=== PATIENT | female | born 1945 | race Caucasian/White ===

== ENCOUNTER → 2022-07-27 10:23 | Outpatient (CLI) | payer MEDICARE, SELFPAY ==
--- NOTE | ~2022-07-27 | XR_ITS ---
XR knee LT 3V 07/27/2022 11:28 Indication: Left knee pain Procedure: 3 views left knee Comparison: No prior studies for comparison. Findings: Severe tricompartment osteoarthritis of the left knee. No significant joint effusion. No fr acture, subluxation or dislocation. No significant joint effusion. No foreign bodies. Impression: 1: Severe tricompartment osteoarthritis of the left knee. Reviewed, dictated and finalized at location L. Impression: 1: Severe tricompartment osteoarthritis of the left knee.
== END ==
PROVIDERS: PCP Internal Medicine; Visit Provider Nurse Practitioner Family
DX: M17.12 Unilateral primary osteoarthritis, left knee (principal)
CPT/HCPCS: 73562

== ENCOUNTER 2024-09-22 11:56 | Outpatient (CLI) | payer MEDICARE, SELFPAY ==
--- NOTE | ~2024-09-22 | MM_ITS ---
EXAMINATION: MM screening ryan BI w russ HISTORY: Screening TECHNIQUE: Craniocaudal and mediolateral oblique 3-D tomosynthesis images were obtained and synthetic 2-D images were generated. CAD analysis was submitted and interpreted. COMPARISON: No prior mammogram is available for comparison at this institution. BREAST PARENCHYMAL COMPOSITION: Not dense: There are scattered areas of fibroglandular density. FINDINGS: No significant change to benign-appearing mass in the left periareolar location. There is n o evidence of suspicious mass, calcification, or architectural distortion to suggest malignancy in ei ther breast. There has been no suspicious interval change. IMPRESSION: 1. No mammographic evidence of malignancy. 2. Recommend routine screening mammography in one year. BI-RADS Category 2: Benign finding(s). Reviewed, dictated and finalized at location B.
--- OUTSIDE RECORDS SUMMARY | 2024-09-22 12:02 | XMS_ITS | Encounter Summary ---
Author Organization [facility] Health Address [address] [place] [address] Care Team Providers Care Stone Operator Name Role Phone Christopher Wu MD Primary Care Provider Encounter Details Date Type Department Care Team (Late st Contact Info) Description 12/14/2022 Lab Requisition [facility] [address] [place] [id number] Luis Cannon MD [address] [place] [address] Social History Tobacco Use Types Packs/Day Years Used Date Smoking Tobacco: Never Assessed Comments Unknown Sex and Gender Information Value Date Recorded Sex Assigned at Not on file Legal Sex Female 10:35 AM CDT Gender Identity Not on file Sexual Orientation Not on file documented as of this encounter Plan of Treatment Not on file documented as of this encounter Visit Diagnoses Not on filedocumented in this encounter Care Teams Stone Operator Relationship Specialty Start Date End Date Christopher Wu MD PCP - General 11/08/17 documented as of this encounter
--- OUTSIDE RECORDS SUMMARY | 2024-09-22 12:02 | XMS_ITS | Data Portability ---
Author Organization [facility], Main Office Address [address] [place] [address] Care Team Providers Care Director Post Name Role Phone SADIE WU Primary Care Provider [phone] SADIE WU Referring Provider [phone] Assessment Encounter Date Assessment Date Assessment LastModified by Organization Details LastModified Time 05/18/2022 05/18/2022 Continue current therapy in follow-up in 4 months. Not available 05/20/2022 20:09:00 10/26/2022 10/26/2022 Abdominal pain Protonix ultrasound Hypothyroid lab Dyslipidemia labs Follow-up 1 month [email or web address] Not available 10/26/2022 12:04:46 11/30/2022 11/30/2022 Continue current therapy medicines refilled the echogenic material is not commented on that it is clearly stones with echo stick shadowing I will have a surgeon take a look at this to see what they think follow-up 6 months [email or web address] Not available 12/01/2022 08:54:56 Plan of Treatment Reminders Order Date Submit Date Provider Last Modified By Organization Details Last Modified Time Details Appointments None recorded. Lab lipase, serum or plasma 2022 023 NIHARIKA Not available 3 13:50:00 CBC w/ auto diff 2022 023 NIHARIKA Not available 3 12:47:58 CMP, serum or plasma 2022 023 NIHARIKA Not available 3 13:50:06 lipid panel, serum 2022 023 NIHARIKA Not available 3 13:50:08 T3, free, serum or plasma 2022 023 NIHARIKA Not available 3 13:50:33 T4, free, serum 2022 023 NIHARIKA Not available 3 13:50:38 TSH, serum or plasma 2022 023 NIHARIKA Not available 3 13:50:49 Referral general surgeon referral 2022 023 [facility], [address] [place] [address], [address], 4 10:17:14 Procedures None recorded. Surgeries None recorded. Imaging US, abdomen - no auth required 2022 023 [facility] Not available 4 10:43:12 Medication Orders levothyroxi ne 150 mcg tablet [facility]22 [facility]23 [id number] [address], [place], [id number], 3 13:03:41 lisinopril 10 mg tablet [address] [facility], [address], [place], [id number], 3 13:03:41 pantoprazol e 40 mg tablet,belkys yed release [address] [facility]88, [address], [place], [id number], 3 13:03:41 atorvastati n 20 mg tablet [address] [facility]050, [address], [place], [id number], 3 13:03:41 Protonix 40 mg tablet,belkys yed release 2022 023 [email or web address], [address], [place], [id number], 13:58:34 Patient TargetsNo targets recorded. Patient InstructionsNo instructions recorded. Reason for Referral General Surgeon Referral for Ultrasonography of abdomen abnormal Referring Physician: Sadie Wu, Internal Medicine, Encounter Date: 11/30/2022 Results Created Date Observation Date Name Description Value Unit Range Abnormal Flag Note LastModifiedBy Organization Detail LastModifiedTime 12/30/19 22 12/29/2021 TSH thyroid-stim ulating hormone 10.700 uIU/m L 0.465- 4.680 high Not Available [facility] (Lab) [address] [place], [address], 12/29/2021 20:45:12 12/30/1912/29/2021 VITAM IN D 25-HY DROXY [id number] 33.8 NG/mL 30-100 Vitam in D Statu s: Defic ient: <20 ng/mL Insuf ficie nt: 20-29 ng/mL Suffi cient : 30-10 0 ng/mL Not Available [facility] (Lab) [address] [place], [address], 12/29/2021 20:40:28 12/30/1912/29/2021 T3 FREE free T3 2.7 pg/mL 2.77-5 .27 low Not Available [facility] (Lab) [address] [place], [address], 12/29/2021 20:24:43 12/30/1912/29/2021 T4 FREE free T4 1.27 NG/dL 0.78-2 .19 Not Available [facility] (Lab) [address] [place], [address], 12/29/2021 20:24:41 10/20/20 22 12/29/2021 LIPID PANEL LDL cholesterol, calculated 110 mg/dL 0-130 NIH TARA NSUS REPOR T RECOM MENDA TIONS FOR LDL: ADULT CHILD LOW RISK <130 <110 (OPTI MAL LDL) <100 ----- BORDE RLINE : 130-1 59 ----- HIGH RISK: >160 >130 A TRIGL YCERI DE RESUL T >400 INVAL IDATE S THE CALCU LATIO N FOR LDL FRACT IONAT ION - THE LDL RESUL T WILL NOT BE REPOR ERA. Not Available [facility] (Lab) [address] [place], [address], 12/29/2021 20:20:47 12/30/19 22 12/29/2021 LIPID PANEL cholesterol 200 mg/dL 140-19 9 high NIH TARA NSUS RECOM MENDA TION FOR NICOLE STERO L: ADULT CHILD LOW RISK: <200 <170 BORDE RLINE : <200- 239 ----- HIGH RISK: >240 >200 Not Available [facility] (Lab) [address] [place], [address], 12/29/2021 20:20:47 12/30/19 22 12/29/2021 LIPID PANEL triglyceride s 136 mg/dL 0-150 NIH TARA NSUS REPOR T RECOM MENDA TION FOR TRIGL YCERI ZACKERY: ADULT CHILD LOW RISK: <150 ----- BODER LINE: 150-1 99 ----- HIGH RISK: >200 ----- Not Available [facility] (Lab) [address] [place], [address], 12/29/2021 20:20:47 12/30/19 22 12/29/2021 LIPID PANEL HDL cholesterol 63 mg/dL 40- Not Available [facility] (Lab) [address] [place], [address], 12/29/2021 20:20:47 12/30/19 22 12/29/2021 COMPR EHENS RAINA METAB OLIC PANEL sodium 140 mmol/ L 137-14 5 Not Available [facility] (Lab) [address] [place], [address], 12/29/2021 20:20:46 12/30/19 22 12/29/2021 COMPR EHENS RAINA METAB OLIC PANEL potassium 4.3 mmol/ L 3.5-5. 1 Not Available [facility] (Lab) [address] [place], [address], 12/29/2021 20:20:46 12/30/19 22 12/29/2021 COMPR EHENS RAINA METAB OLIC PANEL chloride 103 mmol/ L 98-107 Not Available [facility] (Lab) [address] [place], [address], 12/29/2021 20:20:46 12/30/19 22 12/29/2021 COMPR EHENS RAINA METAB OLIC PANEL carbon dioxide 28 mmol/ L 22-30 Not Available [facility] (Lab) [address] [place], [address], 12/29/2021 20:20:46 12/30/19 22 12/29/2021 COMPR EHENS RAINA METAB OLIC PANEL anion gap 13.3 mmol/ L 14-22 low Not Available [facility] (Lab) [address] [place], [address], 12/29/2021 20:20:46 12/30/19 22 12/29/2021 COMPR EHENS RAINA METAB OLIC PANEL glucose 107 mg/dL 70-99 high Not Available [facility] (Lab) [address] [place], [address], 12/29/2021 20:20:46 12/30/19 22 12/29/2021 COMPR EHENS RAINA METAB OLIC PANEL BUN 17 mg/dL 8-19 Not Available [facility] (Lab) [address] [place], [address], 12/29/2021 20:20:46 12/30/19 22 12/29/2021 COMPR EHENS RAINA METAB OLIC PANEL creatinine 0.84 mg/dL 0.66-1 .25 Not Available [facility] (Lab) [address] [place], [address], 12/29/2021 20:20:46 12/30/19 22 12/29/2021 COMPR EHENS RAINA METAB OLIC PANEL GFR >60 Refer ence Range : [place] ge GFR Healt hy Adult : >60 mL/mi n/1.7 3 m2 Chron ic Kidne y Disea se: 15-60 mL/mi n/1.7 3 m2 Kidne y Failu re: <15/m L/min /1.73 m2 www.n iddk. nih.g ov The MDRD study equat ion has not been valid ated in child teena <18 years of age; pregn ant women ; the elder ly >85 years of age; or in some racia l or ethni c subgr oups, such as Hispa nics. Outsi de the valid ated anita eters , estim ated GFR is less accur ate, requi ring clini keshav judgm ent on a case- by-ca se basis . Clini keshav inter preta tion for other races and ages must be made by the clini evan. The MDRD study equat ion has not been valid ated for the evalu ation of serum creat inine relat ed to nutri marie l statu s or medic ation usage . For perso ns <18 years of age, a pedia tric GFR calcu lator is avail able on the [facility] websi te: https ://odin w.jes mena.o rg/pr ofess ional s/kdo qi/gf r_cal culat or Not Available [facility] (Lab) [address] [place], [address], 12/29/2021 20:20:46 12/30/19 22 12/29/2021 COMPR EHENS RAINA METAB OLIC PANEL alkaline phosphatase 99 U/L 38-126 Not Available [facility] (Lab) [address] [place], [address], 12/29/2021 20:20:46 12/30/19 22 12/29/2021 COMPR EHENS RAINA METAB OLIC PANEL alanine aminotransfe rase 22 U/L 0-35 Not Available [facility] (Lab) [address] [place], [address], 12/29/2021 20:20:46 12/30/19 22 12/29/2021 COMPR EHENS RAINA METAB OLIC PANEL aspartate aminotransfe rase 51 U/L 15-37 high Not Available [facility] (Lab) [address] [place], [address], 12/29/2021 20:20:46 12/30/1912/29/2021 COMPR EHENS RAINA METAB OLIC PANEL bilirubin, total 1.00 mg/dL 0.20-1 .30 Not Available [facility] (Lab) [address] [place], [address], 12/29/2021 20:20:46 12/30/19 22 12/29/2021 COMPR EHENS RAINA METAB OLIC PANEL calcium 9.6 mg/dL 8.4-10 .2 Not Available [facility] ([facility] [address] [facility] [place], [address], 12/29/2021 20:20:46 12/30/19 22 12/29/2021 COMPR EHENS RAINA METAB OLIC PANEL total protein 8.4 g/dL 6.3-8. 2 high Not Available [facility] (Lab) [address] [facility] [place], [address], 12/29/2021 20:20:46 12/30/19 22 12/29/2021 COMPR EHENS RAINA METAB OLIC PANEL albumin 4.8 g/dL 3.0-4. 4 high Not Available [facility] (Lab) [address] [place], [address], 12/29/2021 20:20:46 12/30/19 22 12/29/2021 COMPR EHENS RAINA METAB OLIC PANEL globulin 3.6 g/dL 2.6-4. 2 Not Available [facility] (Lab) [address] [place], [address], 12/29/2021 20:20:46 12/30/19 22 12/29/2021 COMPR EHENS RAINA METAB OLIC PANEL A/G ratio 1.3 ratio 1.0-2. 0 Not Available [facility] (Lab) [address] [place], [address], 12/29/2021 20:20:46 12/30/19 22 12/29/2021 CBC/C OMPLE TE BLD COUNT W/DIF F hematocrit 47.0 % 35.7-4 5.7 high Not Available [facility] (Lab) [address] [place], [address], 12/29/2021 19:24:42 12/30/19 22 12/29/2021 CBC/C OMPLE TE BLD COUNT W/DIF F white blood cells 7.9 x10'3 /uL 4.2-10 .8 Not Available [facility] (Lab) [address] [place], [address], 12/29/2021 19:24:42 12/30/19 22 12/29/2021 CBC/C OMPLE TE BLD COUNT W/DIF F red blood cells 4.76 x10'6 /uL 3.80-5 .20 Not Available [facility] (Lab) [address] [place], [address], 12/29/2021 19:24:42 12/30/19 22 12/29/2021 CBC/C OMPLE TE BLD COUNT W/DIF F hemoglobin 15.6 g/dL 12.0-1 5.6 Not Available [facility] (Lab) [address] [place], [address], 12/29/2021 19:24:42 12/30/19 22 12/29/2021 CBC/C OMPLE TE BLD COUNT W/DIF F mean red cell volume 98.7 fL 82.0-9 9.0 Not Available [facility] (Lab) [address] [place], [address], 12/29/2021 19:24:42 12/30/19 22 12/29/2021 CBC/C OMPLE TE BLD COUNT W/DIF F mean red cell hemoglobin 32.8 pg 27.0-3 3.0 Not Available [facility] (Lab) [address] [facility] [place], [address], 12/29/2021 19:24:42 12/30/19 22 12/29/2021 CBC/C OMPLE TE BLD COUNT W/DIF F mean RBC HGB concentratio n 33.2 g/dL 31.0-3 6.0 Not Available [facility] (Lab) [address] [place], [address], 12/29/2021 19:24:42 12/30/19 22 12/29/2021 CBC/C OMPLE TE BLD COUNT W/DIF F red cell distribution width 13.3 % 11.8-1 5.5 Not Available [facility] (Lab) [address] [place], [address], 12/29/2021 19:24:42 12/30/19 22 12/29/2021 CBC/C OMPLE TE BLD COUNT W/DIF F platelets 260 x10'3 /uL 150-40 0 Not Available [facility] (Lab) [address] [place], [address], 12/29/2021 19:24:42 12/30/19 22 12/29/2021 CBC/C OMPLE TE BLD COUNT W/DIF F mean platelet volume 9.6 fL 9.0-12 .4 Not Available [facility] (Lab) [address] [place], [address], 12/29/2021 19:24:42 12/30/19 22 12/29/2021 CBC/C OMPLE TE BLD COUNT W/DIF F neutrophils 67.9 % 39.0-7 2.0 Not Available [facility] (Lab) [address] [place], [address], 12/29/2021 19:24:42 12/30/1912/29/2021 CBC/C OMPLE TE BLD COUNT W/DIF F lymphocytes 23.3 % 16.0-4 7.0 Not Available [facility] (Lab) [address] [place], [address], 12/29/2021 19:24:42 12/30/1912/29/2021 CBC/C OMPLE TE BLD COUNT W/DIF F monocytes 6.2 % 5.0-12 .0 Not Available [facility] (Lab) [address] [place], [address], 12/29/2021 19:24:42 12/30/1912/29/2021 CBC/C OMPLE TE BLD COUNT W/DIF F eosinophils 1.7 % 1.0-7. 0 Not Available [facility] (Lab) [address] [place], [address], 12/29/2021 19:24:42 12/30/1912/29/2021 CBC/C OMPLE TE BLD COUNT W/DIF F basophils 0.6 % 0.0-2. 0 Not Available [facility] (Lab) [address] [place], [address], 12/29/2021 19:24:42 12/30/1912/29/2021 CBC/C OMPLE TE BLD COUNT W/DIF F immature granulocytes 0.3 % 0.00-0 .50 Not Available [facility] (Lab) [address] [place], [address], 12/29/2021 19:24:42 12/30/19 22 12/29/2021 CBC/C OMPLE TE BLD COUNT W/DIF F neutrophils, absolute count 5.33 x10'3 /uL 1.5-8. 0 Not Available [facility] (Lab) [address] [place], [address], 12/29/2021 19:24:42 12/30/19 22 12/29/2021 CBC/C OMPLE TE BLD COUNT W/DIF F lymphocytes, absolute count 1.83 x10'3 /uL 1.07-3 .43 Not Available [facility] (Lab) [address] [place], [address], 12/29/2021 19:24:42 12/30/19 22 12/29/2021 CBC/C OMPLE TE BLD COUNT W/DIF F monocytes, absolute count 0.49 x10'3 /uL 0.29-0 .99 Not Available [facility] (Lab) [address] [place], [address], 12/29/2021 19:24:42 12/30/19 22 12/29/2021 CBC/C OMPLE TE BLD COUNT W/DIF F eosinophils, absolute count 0.13 x10'3 /uL 0.02-0 .53 Not Available [facility] (Lab) [address] [place], [address], 12/29/2021 19:24:42 12/30/19 22 12/29/2021 CBC/C OMPLE TE BLD COUNT W/DIF F basophils, absolute count 0.05 x10'3 /uL 0.01-0 .08 Not Available [facility] (Lab) [address] [place], [address], 12/29/2021 19:24:42 12/30/19 22 12/29/2021 CBC/C OMPLE TE BLD COUNT W/DIF F immature granulocytes ,absolute 0.02 x10'3 /uL 0.00-0 .05 Not Available [facility] (Lab) [address] [place], [address], 12/29/2021 19:24:42 12/30/19 22 12/29/2021 CBC/C OMPLE TE BLD COUNT W/DIF F nucleated red blood cells 0.0 % -0 Not Available [facility] (Lab) [address] [place], [address], 12/29/2021 19:24:42 12/30/19 22 12/29/2021 CBC/C OMPLE TE BLD COUNT W/DIF F NRBC# 0.00 x10'3 /uL Not Available [facility] (Lab) [address] [place], [address], 12/29/2021 19:24:42 03/17/19 23 03/17/2022 SARS- COV-2 RNA(C OVID1 9),RT -PCR sars-cov-2 RNA(covid19) ,RT-PCR negati ve This test has been autho rized by the FDA under an Emerg ency Use Autho rizat ion (EUA) for use by autho rized labor atori es. Negat raina resul ts do not precl ude SARS- CoV-2 and shoul d not be used as the sole basis for treat ment or other patie nt manag ement decis ions. Test resul ts shoul d be corre lated with the clini keshav histo ry, epide miolo gical data, and other data avail able to the clini evan evalu ating the patie nt. Jassi plata w the Fact Sheet s for healt h care provi ders and patie nts at the [facility] jane: https ://ww w.fda .gov/ media /1363 12/do wnloa d https ://ww w.fda .gov/ media /1363 13/do wnloa d https ://ww w.fda .gov/ media /1421 92/do wnloa d https ://ww w.fda .gov/ media /1421 91/do wnloa d Metho dolog y: Real- Time RT-PC R Not Available [facility] (Lab) [address] [place], [address], 03/17/2022 12:52:42 11/03/1911/02/2022 CBC/C OMPLE TE BLD COUNT W/DIF F white blood cells 6.5 x10'3 /uL 4.2-10 .8 Not Available [facility] (Lab) [address] [place], [address], 11/02/2022 12:47:57 11/03/1911/02/2022 CBC/C OMPLE TE BLD COUNT W/DIF F red blood cells 4.54 x10'6 /uL 3.80-5 .20 Not Available [facility] (Lab) [address] [place], [address], 11/02/2022 12:47:57 11/03/1911/02/2022 CBC/C OMPLE TE BLD COUNT W/DIF F hemoglobin 14.7 g/dL 12.0-1 5.6 Not Available [facility] (Lab) [address] [place], [address], 11/02/2022 12:47:57 11/03/1911/02/2022 CBC/C OMPLE TE BLD COUNT W/DIF F hematocrit 44.3 % 35.7-4 5.7 Not Available [facility] (Lab) [address] [place], [address], 11/02/2022 12:47:57 11/03/1911/02/2022 CBC/C OMPLE TE BLD COUNT W/DIF F mean red cell volume 97.6 fL 82.0-9 9.0 Not Available [facility] (Lab) [address] [place], [address], 11/02/2022 12:47:57 11/03/1911/02/2022 CBC/C OMPLE TE BLD COUNT W/DIF F mean red cell hemoglobin 32.4 pg 27.0-3 3.0 Not Available [facility] (Lab) [address] [place], [address], 11/02/2022 12:47:57 11/03/1911/02/2022 CBC/C OMPLE TE BLD COUNT W/DIF F mean RBC HGB concentratio n 33.2 g/dL 31.0-3 6.0 Not Available [facility] (Lab) [address] [place], [address], 11/02/2022 12:47:57 11/03/1911/02/2022 CBC/C OMPLE TE BLD COUNT W/DIF F red cell distribution width 13.2 % 11.8-1 5.5 Not Available [facility] (Lab) [address] [place], [address], 11/02/2022 12:47:57 11/03/1911/02/2022 CBC/C OMPLE TE BLD COUNT W/DIF F platelets 306 x10'3 /uL 150-40 0 Not Available [facility] (Lab) [address] [place], [address], 11/02/2022 12:47:57 11/03/1911/02/2022 CBC/C OMPLE TE BLD COUNT W/DIF F mean platelet volume 9.5 fL 9.0-12 .4 Not Available [facility] (Lab) [address] [place], [address], 11/02/2022 12:47:57 11/03/1911/02/2022 CBC/C OMPLE TE BLD COUNT W/DIF F neutrophils 63.0 % 39.0-7 2.0 Not Available [facility] (Lab) [address] [place], [address], 11/02/2022 12:47:57 11/03/19 23 11/02/2022 CBC/C OMPLE TE BLD COUNT W/DIF F lymphocytes 26.7 % 16.0-4 7.0 Not Available [facility] (Lab) [address] [place], [address], 11/02/2022 12:47:57 11/03/1911/02/2022 CBC/C OMPLE TE BLD COUNT W/DIF F monocytes 7.4 % 5.0-12 .0 Not Available [facility] (Lab) [address] [place], [address], 11/02/2022 12:47:57 11/03/1911/02/2022 CBC/C OMPLE TE BLD COUNT W/DIF F eosinophils 1.8 % 1.0-7. 0 Not Available [facility] (Lab) [address] [place], [address], 11/02/2022 12:47:57 11/03/1911/02/2022 CBC/C OMPLE TE BLD COUNT W/DIF F basophils 0.8 % 0.0-2. 0 Not Available [facility] (Lab) [address] [place], [address], 11/02/2022 12:47:57 11/03/1911/02/2022 CBC/C OMPLE TE BLD COUNT W/DIF F immature granulocytes 0.3 % 0.00-0 .50 Not Available [facility] (Lab) [address] [place], [address], 11/02/2022 12:47:57 11/03/1911/02/2022 CBC/C OMPLE TE BLD COUNT W/DIF F neutrophils, absolute count 4.11 x10'3 /uL 1.5-8. 0 Not Available [facility] (Lab) [address] [place], [address], 11/02/2022 12:47:57 11/03/19 23 11/02/2022 CBC/C OMPLE TE BLD COUNT W/DIF F lymphocytes, absolute count 1.74 x10'3 /uL 1.07-3 .43 Not Available [facility] (Lab) [address] [place], [address], 11/02/2022 12:47:57 11/03/1911/02/2022 CBC/C OMPLE TE BLD COUNT W/DIF F monocytes, absolute count 0.48 x10'3 /uL 0.29-0 .99 Not Available [facility] (Lab) [address] [place], [address], 11/02/2022 12:47:57 11/03/1911/02/2022 CBC/C OMPLE TE BLD COUNT W/DIF F eosinophils, absolute count 0.12 x10'3 /uL 0.02-0 .53 Not Available [facility] (Lab) [address] [place], [address], 11/02/2022 12:47:57 11/03/1911/02/2022 CBC/C OMPLE TE BLD COUNT W/DIF F basophils, absolute count 0.05 x10'3 /uL 0.01-0 .08 Not Available [facility] (Lab) [address] [place], [address], 11/02/2022 12:47:57 11/03/1911/02/2022 CBC/C OMPLE TE BLD COUNT W/DIF F immature granulocytes ,absolute 0.02 x10'3 /uL 0.00-0 .05 Not Available [facility] (Lab) [address] [place], [address], 11/02/2022 12:47:57 11/03/19 23 11/02/2022 CBC/C OMPLE TE BLD COUNT W/DIF F nucleated red blood cells 0.0 % -0 Not Available [facility] (Lab) [address] [place], [address], 11/02/2022 12:47:57 11/03/1911/02/2022 CBC/C OMPLE TE BLD COUNT W/DIF F NRBC# 0.00 x10'3 /uL Not Available [facility] (Lab) [address] [place], [address], 11/02/2022 12:47:57 11/03/1911/02/2022 LIPAS E SERUM lipase 134 U/L 23-300 Not Available [facility] (Lab) [address] [place], [address], 11/02/2022 13:50:00 11/03/19 23 11/02/2022 COMPR EHENS RAINA METAB OLIC PANEL sodium 142 mmol/ L 137-14 5 Not Available [facility] (Lab) [address] [place], [address], 11/02/2022 13:50:06 11/03/1911/02/2022 COMPR EHENS RAINA METAB OLIC PANEL potassium 3.9 mmol/ L 3.5-5. 1 Not Available [facility] (Lab) [address] [place], [address], 11/02/2022 13:50:06 11/03/1911/02/2022 COMPR EHENS RAINA METAB OLIC PANEL chloride 105 mmol/ L 98-107 Not Available [facility] (Lab) [address] [place], [address], 11/02/2022 13:50:06 11/03/19 23 11/02/2022 COMPR EHENS RAINA METAB OLIC PANEL carbon dioxide 28 mmol/ L 22-30 Not Available [facility] (Lab) [address] [place], [address], 11/02/2022 13:50:06 11/03/19 23 11/02/2022 COMPR EHENS RAINA METAB OLIC PANEL anion gap 12.9 mmol/ L 14-22 low Not Available [facility] (Lab) [address] [place], [address], 11/02/2022 13:50:06 11/03/19 23 11/02/2022 COMPR EHENS RAINA METAB OLIC PANEL glucose 97 mg/dL 70-99 Not Available [facility] (Lab) [address] [place], [address], 11/02/2022 13:50:06 11/03/1911/02/2022 COMPR EHENS RAINA METAB OLIC PANEL BUN 20 mg/dL 8-19 high Not Available [facility] (Lab) [address] [place], [address], 11/02/2022 13:50:06 11/03/19 23 11/02/2022 COMPR EHENS RAINA METAB OLIC PANEL creatinine 0.69 mg/dL 0.66-1 .25 Not Available [facility] (Lab) [address] [place], [address], 11/02/2022 13:50:06 11/03/1911/02/2022 COMPR EHENS RAINA METAB OLIC PANEL GFR >60 Refer ence Range : [place] ge GFR Healt hy Adult : >60 mL/mi n/1.7 3 m2 Chron ic Kidne y Disea se: 15-60 mL/mi n/1.7 3 m2 Kidne y Failu re: <15/m L/min /1.73 m2 www.n iddk. nih.g ov The MDRD study equat ion has not been valid ated in child teena <18 years of age; pregn ant women ; the elder ly >85 years of age; or in some racia l or ethni c subgr oups, such as Hispa nics. Outsi de the valid ated anita eters , estim ated GFR is less accur ate, requi ring clini keshav judgm ent on a case- by-ca se basis . Clini keshav inter preta tion for other races and ages must be made by the clini evan. The MDRD study equat ion has not been valid ated for the evalu ation of serum creat inine relat ed to nutri marie l statu s or medic ation usage . For perso ns <18 years of age, a pedia tric GFR calcu lator is avail able on the [facility] websi te: https ://odin w.jes clearyy.o rg/pr ofess ional s/kdo qi/gf r_cal culat or Not Available [facility] (Lab) [address] [place], [address], 11/02/2022 13:50:06 11/03/1911/02/2022 COMPR EHENS RAINA METAB OLIC PANEL alkaline phosphatase 105 U/L 38-126 Not Available [facility] (Lab) [address] [place], [address], 11/02/2022 13:50:06 11/03/19 23 11/02/2022 COMPR EHENS RAINA METAB OLIC PANEL alanine aminotransfe rase 43 U/L 0-35 high Not Available [facility] (Lab) [address] [place], [address], 11/02/2022 13:50:06 11/03/1911/02/2022 COMPR EHENS RAINA METAB OLIC PANEL aspartate aminotransfe rase 28 U/L 15-37 Not Available [facility] [place] (Lab) [address] [place], [address], 11/02/2022 13:50:06 11/03/1911/02/2022 COMPR EHENS RAINA METAB OLIC PANEL bilirubin, total 0.60 mg/dL 0.20-1 .30 Not Available [facility] (Lab) [address] [place], [address], 11/02/2022 13:50:06 11/03/19 23 11/02/2022 COMPR EHENS RAINA METAB OLIC PANEL calcium 9.3 mg/dL 8.4-10 .2 Not Available [facility] (Lab) [address] [place], [address], 11/02/2022 13:50:06 11/03/19 23 11/02/2022 COMPR EHENS RAINA METAB OLIC PANEL total protein 7.0 g/dL 6.3-8. 2 Not Available [facility] (Lab) [address] [place], [address], 11/02/2022 13:50:06 11/03/19 23 11/02/2022 COMPR EHENS RAINA METAB OLIC PANEL albumin 4.2 g/dL 3.0-4. 4 Not Available [facility] (Lab) [address] [place], [address], 11/02/2022 13:50:06 11/03/19 23 11/02/2022 COMPR EHENS RAINA METAB OLIC PANEL globulin 2.8 g/dL 2.6-4. 2 Not Available [facility] (Lab) [address] [place], [address], 11/02/2022 13:50:06 11/03/19 23 11/02/2022 COMPR EHENS RAINA METAB OLIC PANEL A/G ratio 1.5 ratio 1.0-2. 0 Not Available [facility] (Lab) [address] [place], [address], 11/02/2022 13:50:06 11/03/19 23 11/02/2022 LIPID PANEL cholesterol 172 mg/dL 140-19 9 [facility] TARA NSUS RECOM MENDA TION FOR NICOLE STERO L: ADULT CHILD LOW RISK: <200 <170 BORDE RLINE : <200- 239 ----- HIGH RISK: >240 >200 Not Available [facility] (Lab) [address] [place], [address], 11/02/2022 13:50:08 11/03/19 23 11/02/2022 LIPID PANEL triglyceride s 150 mg/dL 0-150 NIH TARA NSUS REPOR T RECOM MENDA TION FOR TRIGL YCERI ZACKERY: ADULT CHILD LOW RISK: <150 ----- BODER LINE: 150-1 99 ----- HIGH RISK: >200 ----- Not Available [facility] (Lab) [address] [place], [address], 11/02/2022 13:50:08 11/03/19 23 11/02/2022 LIPID PANEL HDL cholesterol 49 mg/dL 40- Not Available [facility] (Lab) [address] [place], [address], 11/02/2022 13:50:08 11/03/19 23 11/02/2022 LIPID PANEL LDL cholesterol, calculated 93 mg/dL 0-130 [facility] TARA NSUS REPOR T RECOM MENDA TIONS FOR LDL: ADULT CHILD LOW RISK <130 <110 (OPTI MAL LDL) <100 ----- BORDE RLINE : 130-1 59 ----- HIGH RISK: >160 >130 A TRIGL YCERI DE RESUL T >400 INVAL IDATE S THE CALCU LATIO N FOR LDL FRACT IONAT ION - THE LDL RESUL T WILL NOT BE REPOR ERA. Not Available [facility] (Lab) [address] [place], [address], 11/02/2022 13:50:08 11/03/19 23 11/02/2022 T3 FREE free T3 3.3 pg/mL 2.77-5 .27 Not Available [facility] (Lab) [address] [place], [address], 11/02/2022 13:50:33 11/03/19 23 11/02/2022 T4 FREE free T4 1.48 NG/dL 0.78-2 .19 Not Available [facility] (Lab) [address] [place], [address], 11/02/2022 13:50:38 11/03/19 23 11/02/2022 TSH thyroid-stim ulating hormone 0.769 uIU/m L 0.465- 4.680 Not Available [facility] (Lab) [address], [place], [address], 11/02/2022 13:50:49 03/28/19 XR, hip + pelvi s, bilat eral, 2 view [facility] [address], [place] [address] [phone] Patien t Name: CRISTINE STRONG Access ion #: [id number] Sex: F : 1945 6 Locati on: RA2 Attend ing Physic kenny: JOSTIN WU Orderi Physic kenny: JOSTIN WU Exam Date: 023 12:24 PM Exam Name: XR HIPS/P BEHZAD BILAT 3-4V Admitt ing Diagno sis(es ): RADIOL OGY REPORT - FINAL EXAM: XR HIPS/P BEHZAD BILAT 3-4V HISTOR Y: HIP PAIN 76-yea r-old female with bilate ral hip pain, right greate r than left, no known injury . COMPAR MARY: Radiog raphs dated 2020. TECHNI QUE: AP and frog leg latera l views of the bilate ral hips and AP view of the pelvis were perfor med. FINDIN GS: No acute fractu re is identi fied about the pelvis or hips. There are tiny margin al osteop hytes of the bilate ral hips, withou t signif icant joint space narrow ing on either side. There are advanc ed degene rative change s of the lower lumbar spine, not fully imaged here. Page 1 of 2 [facility] Gregor t Name: CRISTINE STRONG Access ion #: [id number] Sex: F : 1945 6 Exam Date: 023 12:24 PM Exam Name: XR HIPS/P BEHZAD BILAT 3-4V Admitt ing Diagno sis(es ): IMPRES THAD: 1. No fractu re of the pelvis or hips. 2. Mild osteoa rthrit is of the bilate ral hips. 3. Advanc ed lower lumbar degene rative disc diseas e. If the patien t compla ins of lower extrem ity radicu lar sympto ms, consid er follow -up noncon trast MRI of the lumbar spine for evalua tion of the exitin g nerve roots. Create d and electr onical ly signed by: Ruben bonilla MD Signed Date: 4:23 PM (CT) Dictat ed by: Ruben bonilla MD DD: 4:23 PM (CT) DT: 4:23 PM (CT) Page 2 of 2 [id number] [facility] (Imaging) [address] [place], [address], 05/10/2022 03:26:14 06/02/19 23 04/05/2022 MRI, lumba r spine , w/o contr ast No observ ation record ed. cyahl Not Available 2022 13:32:10 07/28/19 23 07/27/2022 XR, knee No observ ation record ed. [email or web address] [facility] [address], [place], [address], 10/26/2022 12:45:45 09/20/19 23 MAMMO , scree acacia, digit al, bilat eral [facility] [address] [place] [address] [phone] Patien t Name: CRISTINE STRONG ion #: [id number] Sex: F : 1945 8 Dictat ed By: Jostin Aaron [facility] Attend ing Physic kenny: JOSTIN WU [facility] Physic kenny: MAIA ELAINE Exam Date: 2022 09:34 AM Exam Name: MG HILDA Zazueta STEPHANI BILAT SCREEN Admitt ing Diagno sis(es ): CLINIC AL HISTOR Y: Screen ing exam, no breast compla ints. No person al histor y of breast cancer or prior breast interv ention . No family histor y of breast cancer . COMPAR MARY: Prior mammog rupinder dated 09/16/19 22, 021, and 019. TECHNI QUE: Full field bilate ral digita l mammog zev was perfor med in the CC and MLO projec tions. CAD was utiliz ed. FINDIN GS: The breast s are almost entire ly fatty (categ ory A). Benign calcif icatio ns. No suspic ious mass, mac ectura l distor tion, or suspic ious microc alcifi cation s are seen. The axilla e, skin and nipple s are normal . IMPRES THAD: Benign findin gs. RECOMM ENDATI ONS: In the absenc e of new breast compla ints, annual screen ing is recomm ended. The patien t will be notifi ed of the mammog zev result s per hospit al protoc ol. BI-RAD S CATEGO RY: 2: Benign . Electr onical ly Signed by: Jostin william at 2022 14:56: 46 PM Page 1 [email or web address] [facility] (Im[facility]) [address] [place], [address], 10/26/2022 12:45:52 11/03/19 23 , abdom en [facility] [address] [place] [address] [phone] Patien t Name: CRISTINE STRONG Access ion #: [id number] Sex: F : 1945 2 Dictat ed By: Jostin william Attend ing Physic kenny: JOSTIN WU Orderi ng Physic kenny: JOSTIN WU Exam Date: 2022 08:32 AM Exam Name: US ABD/LT D/ORG/ UQ/GB Admitt ing Diagno sis(es ): CLINIC AL INFORM ATION: Right upper abdomi nal pain. TECHNI QUE: Graysc patrick sonogr aphic imagin g of the right upper quadra nt of the abdome n was perfor med, assist ed by color Dopple r techni ques. COMPAR MARY: Prior ultras ound dated 2020. FINDIN GS: The gallbl adder wall measur es 2.2 mm in thickn ess, within normal limits . Gallbl adder sludge and echoge daniella debris visual ized within the gallbl adder. Negati ve report ed sonogr aphic Ramirez sign. The common bile duct measur es 6 mm in diamet er, within normal limits . Mildly increa sed echoge nicity of the liver, possib le mild fatty infilt ration . Trace perihe patic ascite s. Portal vein appear s patent with normal hepato pedal flow. The pancre as is partly obscur ed, likely by bowel gas. The visual ized portio ns appear normal . The right kidney measur es 9.8 cm. There is no stone or hydron ephros is. Right renal cortic al echoge nicity and cortic al thickn ess are within normal limits . IVC appear s patent . No abdomi nal aortic aneury sm visual ized. IMPRES THAD: 1. Gallbl adder sludge and echoge daniella debris within the gallbl adder. No sonogr aphic eviden ce of acute cholec ystiti s. 2. Mildly increa sed echoge nicity of the liver, possib le mild fatty infilt ration . Electr onical ly Signed by: Jostin william at 2022 12:15: 13 PM Page 1 [facility] [address] [place], [address], 03/29/2023 10:43:12 Result Notes Documentation Provider Name and Address Organization Details Recorded Time Xr, Hip + Pelvis, Bilateral, 2 View : [facility] [address] [place] [address] Patient Name: CRISTINE STRONG Sex: F : 1945 Location: [facility] Attending Physician: SADIE WU Ordering Physician: SADIE WU Exam Date: 03/28/2022 12:24 PM Exam Name: XR HIPS/PELVIS BILAT 3-4V Admitting Diagnosis(es): RADIOLOGY REPORT - FINAL EXAM: XR HIPS/PELVIS BILAT 3-4V HISTORY: HIP PAIN 76-year-old female with bilateral hip pain, right greater than left, no known injury. COMPARISON: Radiographs dated 09/03/2020. TECHNIQUE: AP and frog leg lateral views of the bilateral hips and AP view of the pelvis were performed. FINDINGS: No acute fracture is identified about the pelvis or hips. There are tiny marginal osteophytes of the bilateral hips, without significant joint space narrowing on either side. There are advanced degenerative changes of the lower lumbar spine, not fully imaged here. Page 1 of 2 [facility] Patient Name: CRISTINE STRONG Sex: F : 1945 Exam Date: 03/28/2022 12:24 PM Exam Name: XR HIPS/PELVIS BILAT 3-4V Admitting Diagnosis(es): IMPRESSION: 1. No fracture of the pelvis or hips. 2. Mild osteoarthritis of the bilateral hips. 3. Advanced lower lumbar degenerative disc disease. If the patient complains of lower extremity radicular symptoms, consider follow-up noncontrast MRI of the lumbar spine for evaluation of the exiting nerve roots. Created and electronically signed by: Ruben Pleitez MD Signed Date: 03/28/2022 4:23 PM (CT) Dictated by: Ruben Pleitez MD (CT) (CT) Page 2 of 2 Not Available [facility] 05/10/2022 03:26:17 Mammo, Screening, Digital, Bilateral : [address] [address] Patient Name: CRISTINE STRONG Sex: F : 1945 Dictated By: Sadie Moraes Attending Physician: SADIE WU Ordering Physician: MAIA NOEL Exam Date: 09/19/2022 09:34 AM Exam Name: MG DIGITAL STEPHANI BILAT SCREEN Admitting Diagnosis(es): CLINICAL HISTORY: Screening exam, no breast complaints. No personal history of breast cancer or prior breast intervention. No family history of breast cancer. COMPARISON: Prior mammograms dated 09/15/2021, 09/03/2020, and 04/22/2018. TECHNIQUE: Full field bilateral digital mammography was performed in the CC and MLO projections. CAD was utilized. FINDINGS: The breasts are almost entirely fatty (category A). Benign calcifications. No suspicious mass, architectural distortion, or suspicious microcalcifications are seen. The axillae, skin and nipples are normal. IMPRESSION: Benign findings. RECOMMENDATIONS: In the absence of new breast complaints, annual screening is recommended. The patient will be notified of the mammography results per hospital protocol. BI-RADS CATEGORY: 2: Benign. Page 1 CHARLY Nolen, [employer] 10/26/2022 12:45:52 Problems Name Problem SNOMED Code Status Onset Date Resolution Date Notes Provider Name and Address Organization Details Recorded Time Sciatica 07287739 Active 2022 Not Available [facility] 3 07:24:30 Spinal stenosis of lumbar region 32471699 Active 2022 Not Available [facility] 3 07:24:30 Abdominal pain 83560004 Active 2022 Not Available [facility] 3 07:24:30 Ultrasonog zev of abdomen abnormal 6855276445309 9109 Active 2022 ANA Ledezma, [employer] 3 12:20:45 Benign essential hypertensi on 9121026 Active Not Available [facility] 3 07:24:30 Capsulitis of metatarsop halangeal joint of right foot 4882902736775 9106 Active 2020 Not Available [facility] 3 07:24:30 MRI scan abnormal 040599781 Active 2022 Not Available [facility] 3 07:24:30 [place] - lesion 304533570 Active Left foot Not Available [facility] 3 07:24:30 Low back pain 637560397 Active 2022 Not Available [facility] 3 07:24:30 Ruiz's neuroma of right foot 2510747149386 08 Active 2020 Not Available [facility] 3 07:24:30 Pain in left foot 3560882875849 07 Active 2021 Not Available [facility] 3 07:24:30 Pain in right foot 0449125598263 07 Active 2020 Not Available [facility] 3 07:24:30 Pain of right hip joint 9223793275786 02 Active 2022 Not Available [facility] 3 07:24:30 Pain of multiple joints 71402979 Active 2022 Not Available [facility] 3 07:24:30 Neurapraxi a 783170813 Active 2020 Not Available [facility] 3 07:24:30 Dyslipidem ia 667771527 Active 2018 Not Available [facility] 3 07:24:30 Osteoarthr itis 452225944 Active 2019 Not Available [facility] 3 07:24:30 Porokerato sis 535875711 Active 2021 Not Available [facility] 3 07:24:30 Hypothyroi dism 40597818 Active Not Available [facility] 3 07:24:30 Cough 63588365 Active Not Available [facility] 3 07:24:30 COVID-19 546427700 Active 2021 Not Available [facility] 3 07:24:30 Problem Notes None recorded. Procedures Surgical History Date Name Laterality Status Provider Name and Address Organization Details Recorded Time 03/28/19 18 Date of Last Colonoscopy completed Not Available [facility] 05/10/2022 03:08:05 03/21/19 18 Colonoscopy completed Not Available [facility] 05/11/19 23 03:08:08 06/12/19 11 Most Recent Bone Density completed Not Available [facility] 05/10/2022 03:08:05 completed Not Available [facility] 0 05/10/2022 03:08:08 excision of squamous cell carcinoma completed Not Available [facility] 05/10/2022 03:08:08 Imaging Results None recorded. Procedure Notes None recorded. Medical Equipment None Reported. Allergies Allergen ID Allergen Name Allergen Category Reaction Reaction Severity Criticality Documentation Date Start Date Code Code System Note Provider Name and Address Organization Details Recorded Time 5792 Substance with sulfonami de structure and antibacte rial mechanism of action (substanc e) medicatio n hives Not available Not available 05/10/2022 44902 8003 SNOMED Not Available [facility] 3 03:25:44 5793 Product containin g penicilli n (product) medicatio n hives Not available Not available 05/10/2022 26150 8001 SNOMED Not Available [facility] 3 03:25:44 Medications Name Sig Start Date Stop Date Status Note LastModified by Organization Details LastModified Time cyclobenza rian 10 mg tablet Take 1 tablet twice a day by oral route. active Not Available Not Available No t Available doxycyclin e hyclate 100 mg capsule Take 1 capsule twice a day by oral route for 7 days. 05/18 completed Not Available Not Available Not Available atorvastat in 20 mg tablet TAKE 1 TABLET BY MOUTH DAILY active Not Available Not Available No t Available atorvastat in 10 mg tablet TK 1 T PO QD active Not Available Not Available No t Available Pneumovax- 23 25 mcg/0.5 mL injection solution ADM 0.5ML UTD active Not Available Not Available No t Available clarithrom ycin 500 mg tablet TK 1 T PO 1 HOUR BEFORE APPOINTM ENT 09/18 completed Not Available Not Available Not Available hydrocodon e 5 mg-acetami nophen 325 mg tablet TAKE 1 TABLET BY MOUTH THREE TIMES DAILY NEEDED 05/18 completed Not Available Not Available Not Available meloxicam 15 mg tablet TAKE 1 TABLET BY MOUTH EVERY DAY active Not Available Not Available No t Available Zithromax Z-Paddy 250 mg tablet TAKE 2 TABLETS (500 MG) BY ORAL ROUTE ONCE DAILY FOR 1 DAY THEN 1 TABLET (250 MG) BY ORAL ROUTE ONCE DAILY FOR 4 DAYS 06/23 completed Not Available Not Available Not Available ciprofloxa pascual 500 mg tablet Take 1 tablet twice a day by oral route for 7 days. 09/18 completed Not Available Not Available Not Available peg-electr olyte solution 420 gram oral solution MIX AND DRINK UTD 09/18 completed Not Available Not Available Not Available triamcinol one acetonide 0.1 % topical cream APPLY A THIN LAYER TO THE AFFECTED AREA(S) BY TOPICAL ROUTE 2 TIMES PER DAY active Not Available Not Available No t Available pantoprazo le 40 mg tablet,del ayed release TAKE 1 TABLET BY MOUTH EVERY DAY active Not Available Not Available No t Available oseltamivi r 75 mg capsule TK 1 C PO BID FOR 5 DAYS 11/24 completed Not Available Not Available Not Available levothyrox ine 125 mcg tablet TAKE 1 TABLET BY MOUTH EVERY DAY 05/18 completed Not Available Not Available Not Available lisinopril 10 mg tablet TAKE 1 TABLET BY MOUTH EVERY DAY 2022 active Not Available Not Available Not Avai lable levothyrox ine 150 mcg tablet TAKE 1 TABLET BY MOUTH EVERY DAY active Not Available Not Available No t Available etodolac 400 mg tablet TAKE 1 TABLET BY MOUTH TWICE DAILY 04/20 completed has not been taking Not Available Not Available Not Available mupirocin 2 % topical ointment 03/19 completed Not Available Not Available Not Available Levaquin 500 mg tablet Take 1 tablet every day by oral route. 06/23 completed Not Available Not Available Not Available ergocalcif marcial (vitamin D2) 1,250 mcg (50,000 unit) capsule TK 1 C PO Q OTHER WEEK 02/24 completed Not Available Not Available Not Available methylpred nisolone 4 mg tablets in a dose pack FOLLOW PACKAGE DIRECTIO NS 05/18 completed Not Available Not Available Not Available levothyrox ine 112 mcg tablet TAKE 1 TABLET BY MOUTH EVERY DAY 12/18 completed Not Available Not Available Not Available multivitam in 2021 active Not Available Not Available Not Avai lable Zostavax (PF) 19,400 unit/0.65 mL subcutaneo us suspension 02/24 completed Not Available Not Available Not Available fluocinolo ne acetonide oil 0.01 % ear drops APPLY 5 DROPS TO EXTERIOR EAR TWICE DAILY FOR UP TO 2 WEEKS THEN NEEDED 12/29 completed Not Available Not Available Not Available cholecalci ferol (vitamin D3) 1,250 mcg (50,000 unit) capsule EVERY OTHER WEEK 02/24 completed Not Available Not Available Not Available Fluad Quad 6869-7061( 65yr up)(PF) 60 mcg (15 mcg x 4)/0.5mL IM syringe ADM 0.5ML IM UTD 06/01 completed Not Available Not Available Not Available Paxlovid 300 mg (150 mg x 2)-100 mg tablets in a dose pack TAKE DIRECTED 05/18 completed Not Available Not Available Not Available Vitals Date Recorded Body mass index (BMI) Body height Heart rate Body temperature Body weight Systolic And Diastolic Provider Name and Address Organization Details Last Updated DateTime 3 30.8 kg/m2 165.1 cm 78 /min 97.5 [degF] 93271.5 9 g 138/98 mm[Hg] Not Available [employer] 3 03:12:47 Date Recorded Body height Body mass index (BMI) Body weight Body temperature Heart rate Systolic And Diastolic Provider Name and Address Organization Details Last Updated DateTime 3 165.1 cm 30 kg/m2 73929.6 3 g 97.9 [degF] 100 /min 120/78 mm[Hg] Ines zazueta RN [facility] [employer] [facility] 3 10:50:23 Date Recorded Body height Body mass index (BMI) Body weight Body temperature Heart rate Systolic And Diastolic Provider Name and Address Organization Details Last Updated DateTime 3 165.1 cm 29.8 kg/m2 54383.0 3 g 97.5 [degF] 88 /min 136/82 mm[Hg] ANA Moore [facility] [employer] [facility] 3 11:43:01 Date Recorded Body height Body mass index (BMI) Body weight Body temperature Heart rate Systolic And Diastolic Provider Name and Address Organization Details Last Updated DateTime 3 165.1 cm 30.5 kg/m2 71462.4 g 97.6 [degF] 92 /min 142/98 mm[Hg] ANA Moore [facility] [employer] [facility] 3 11:18:43 Date Recorded Body height Heart rate Body temperature Body weight Systolic And Diastolic Provider Name and Address Organization Details Last Updated DateTime 12/29/2021 165.1 cm 89 /min 98 [degF] 05523.1 8 g 118/76 mm[Hg] Not Available [facility] 3 03:12:46 Social History Question Answer Notes LastModified by Organizat ion Details LastModified Time Tobacco Smoking Status Never Smoker Not Available [facility] 05/10/2022 02:57:39 Do You Have An Advance Directive? Yes [id number] [id number] Information not available 05/10/2022 Are You Blind Or Do You Have Difficulty Seeing? No MIGRATION.49952 07617 Information not available 05/10/2022 What Is Your Level Of Caffeine Consumption? Occasional MIGRATION.50533 11089 Information not available 05/10/2022 How Much Tobacco Do You Chew? None MIGRATION.56190 70741 Information not available 05/10/2022 In The 14 Days Before Symptom Onset, Have You Had Close Contact With A Laboratory-confi rmed COVID-19 While That Case Was Ill? No MIGRATION.85075 [id number] Information not available 05/10/2022 In The 14 Days Before Symptom Onset, Have You Had Close Contact With A Person Who Is Under Investigation For COVID-19 While That Person Was Ill? No MIGRATION.39515 42401 Information not available 05/10/2022 Are You Deaf Or Do You Have Serious Difficulty Hearing? No MIGRATION.11638 66785 Information not available 05/10/2022 What Type Of Diet Are You Following? REGULAR MIGRATION.10858 94520 Information not available 05/10/2022 Which Illicit Or Recreational Drugs Have You Used? None MIGRATION.68880 96172 Information not available 05/10/2022 Have There Been Any Changes To Your Family Or Social Situation? No MIGRATION.44669 22264 Information not available 05/10/2022 What Is The Fluoride Status Of Your Home? Unknown MIGRATION.04701 86348 Information not available 05/10/2022 Do You Use Insect Repellent Routinely? No MIGRATION.33896 09971 Information not available 05/10/2022 Where Do You Live? SingleLevelHouse MIGRATION.73141 70724 Information not available 05/10/2022 Do You Have A Medical Power Of Automation Qa Tester? No MIGRATION.28177 27185 Information not available 05/10/2022 What Was The Date Of Your Most Recent Tobacco Screening? 11/30/2022 [email or web address] Information not available 11/30/2022 Have You Ever Been Counseled For Unhealthy Alcohol Use? No MIGRATION.83358 92441 Information not available 05/10/2022 What Is Your Relationship Status? MIGRATION.76110 96023 Information not available 05/10/2022 Do You Use Your Seat Belt Or Car Seat Routinely? Yes MIGRATION.44113 07565 Information not available 05/10/2022 Do You Have Smoke And Carbon Monoxide Detectors In Your Home? Yes MIGRATION.01030 54604 Information not available 05/10/2022 Are You Passively Exposed To Smoke? No MIGRATION.97307 40860 Information not available 05/10/2022 Are There Any Smokers In Your House? No MIGRATION.38743 06732 Information not available 05/10/2022 How Much Tobacco Do You Smoke? No MIGRATION.90170 78822 Information not available 05/10/2022 What Types Of Sporting Activities Do You Participate In? None MIGRATION.36981 81767 Information not available 05/10/2022 Do You Use Sunscreen Routinely? Yes MIGRATION.39220 55537 Information not available 05/10/2022 Has Tobacco Cessation Counseling Been Provided? No Not Needed-ne magen Smoked MIGRATION.65628 71026 Information not available 05/10/2022 How Many Years Have You Smoked Tobacco? 0 MIGRATION.96022 68188 Information not available 05/10/2022 Have You Recently Traveled Abroad? No MIGRATION.78747 35066 Information not available 05/10/2022 Do You Have Difficulty Walking Or Climbing Stairs? No MIGRATION.46221 15462 Information not available 05/10/2022 Do You Have Any Dietary Restrictions? No MIGRATION.30836 03298 Information not available 05/10/2022 Sex: Female Functional Status Question Answer Note LastModified by Organization Details LastModified Time Do you or have you ever used smokeless tobacco? Never used smokeless tobacco MIGRATION.0301 782111 Information not available 05/10/2022 Are you currently employed? No Information not available 05/18/2022 Do you have transportation difficulties? No MIGRATION.0301 607254 Information not available 05/10/2022 Are you able to care for yourself? Yes MIGRATION.0301 154050 Information not available 05/10/2022 Do you have difficulty dressing or bathing? No MIGRATION.0301 169228 Information not available 05/10/2022 Do you or have you ever used e-cigarettes or vape? Never used electronic cigarettes MIGRATION.0301 [id number] Information not available 05/10/2022 What is your exercise level? Occasional MIGRATION.0301 460443 Information not available 05/10/2022 Do you use any illicit or recreational drugs? No MIGRATION.030 900309 Information not available 05/10/2022 Do you or have you ever used any other forms of tobacco or nicotine? No MIGRATION.030 547048 Information not available 05/10/2022 What is your level of alcohol consumption? None MIGRATION.030 040118 Information not available 05/10/2022 Are you able to walk? YESASSIST uses cane occasionally Information not available 05/18/2022 Do you have difficulty doing errands alone? No MIGRATION.030 570945 Information not available 05/10/2022 What is your occupation? homemaker MIGRATION.030 183735 Information not available 05/10/2022 Mental Status Question Answer Note LastModified by Organizat ion Details LastModified Time Do you feel stressed (tense, restless, nervous, or anxious, or unable to sleep at night)? [id number] MIGRATION.40300078 26 Information not available 05/10/2022 Do you have difficulty concentrating, remembering or making decisions? No MIGRATION.58586198 26 Information not available 05/10/2022 Family History Relationship Description Onset Age of this Age Resolved Age Notes LastModified by Organization Details LastModified Time Father General health good [place] ed [id number] Not available 05/10/2022 03:08:13 Mother General health good [place] ed [id number] Not available 05/10/2022 03:08:13 Medical History Condition Response BLINDNESS N NERVE DISEASE N RHEUMATIC FEVER N BLADDER PROBLEMS N KIDNEY STONES N OTHER # 1 N POLIO N LUNG DISEASE/DISORDER N RADIATION / CHEMOTHERAPY N COPD N Other # 2 N BLOOD DISEASES N SURGERY N EAR OR HEARING PROBLEMS N MUMPS N BOWEL PROBLEMS N DEPRESSION (INCLUDING POST ) N STROKE/TIA N ULCERS N BENIGN PROSTATIC HYPERPLASIA N MEASLES N MYOCARDIAL INFARCTION N OBESITY N GERD/NAUSEA N ANEURYSM N URINARY/BLADDER/KIDNEY PROBLEMS N INPATIENT PSYCH CARE N CORONARY ARTERY DISEASE (CAD) N ADDICTION CONCERNS N ENDOMETRIOSIS N Impotence N USE OF BLOOD THINNERS N SKIN PROBLEMS N GASTROINTESTINAL DISORDER N PERIPHERAL VASCULAR DISEASE N MUSCLE,JOINT OR BONE PROBLEMS N GASTROINTESTINAL BLEEDING N BLOOD CLOTS N ASTHMA N CATARACTS N ERECTILE DYSFUNCTION N VARICOSITIES N GI PROBLEMS N Low Testosterone N INFERTILITY N AIDS/HIV N CHEMOTHERAPY / RADIATION N LIVER DISEASE N MALE HYPOGONADISM N HYPERTENSION Y Deficiency N ANXIETY DISORDER N BLOOD TRANSFUSION N ANEMIA/BLOOD DISORDER N CHRONIC EAR INFECTIONS N BRONCHITIS N TUBERCULOSIS N GLAUCOMA N FOOT PROBLEM N DIVERTICULITIS N SLEEP APNEA N CHICKENPOX N INFECTIOUS DISEASE N HEART ARRHYTHMIA N PROSTATE N INSOMNIA N HIGH CHOLESTEROL / HYPERLIPIDEMIA Y HYPERTHYROIDISM N EYE PROBLEMS N NEUROLOGICAL PROBLEMS N EDEMA N CHRONIC PAIN SYNDROME N HYPOTHYROIDISM Y CAROTID BLOCKAGE N CONSTIPATION N BACK / NECK PROBLEMS N HAVE YOU BEEN HOSPITALIZED OR SEEN IN [facility] IN THE PAST YEAR ? N ATHEROSCLEROSIS N BREAST PROBLEMS N DIALYSIS N ECZEMA N OSTEOPOROSIS N ARTHRITIS Y APPENDICITIS N DIABETES, TYPE N BAD TEETH N ENT N HEARTBURN / REFLUX N AUTISM SPECTRUM DISORDER (ASD) N HEPATITIS / LIVER DISEASE N PULMONARY DISEASE N GOUT N SLEEP DISORDER N ALZHEIMER'S DISEASE N Brain Problems N HERPES N DEMENTIA N HEADACHES/MIGRAINES N SEIZURES/EPILEPSY N VASCULAR DISEASE N PACEMAKER N Blood Disorder N DIZZINESS N HEART DISEASE/HEART PROBLEMS N KIDNEY DISEASE N MULTIPLE SCLEROSIS N CARDIAC ARRHYTHMIA N CANCER: SPECIFY N ANESTHESIA COMPLICATIONS N ATRIAL FIBRILLATION N Gall Stones N PULMONARY EMBOLISM N AUTOIMMUNE DISEASE N Gynecological History Statement/Question Response Date of Last Pap Date of Last Mammogram 09/15/2021 Date of Last Colonoscopy 03/28/2017 Most Recent Bone Density 06/11/2010 Obstetrics History GPAL:G 0 P 0 0 0 0 Immunizations Vaccine Type Date Status Note Provider Nam e and Address Organization Details Recorded Time COVID-19, mRNA, LNP-S, PF, 30 mcg/0.3 mL dose 1 completed Not Available [facility] 11/03/2022 07:24:31 SARS-COV-2 (COVID-19) vaccine, UNSPECIFIED 1 completed Not Available [facility] 11/03/2022 07:24:31 SARS-COV-2 (COVID-19) vaccine, UNSPECIFIED 1 completed Not Available [facility] 11/03/2022 07:24:31 Influenza, high-dose, quadrivalent, PF 0 completed Not Available [facility] 11/03/2022 07:24:31 Influenza, high-dose, quadrivalent, PF 2 completed Not Available [facility] 11/03/2022 07:24:31 COVID-19, mRNA, LNP-S, PF, 30 mcg/0.3 mL dose 2 completed Not Available [facility] 11/03/2022 07:24:31 zoster live 4 completed Not Available [facility] 11/03/2022 07:24:31 Influenza, high-dose, quadrivalent, PF 1 completed Not Available [facility] 11/03/2022 07:24:31 Influenza, split virus, quadrivalent, PF 9 completed Not Available [facility] 11/03/2022 07:24:31 Influenza, high-dose, trivalent, PF 8 completed Not Available [facility] 11/03/2022 07:24:31 Influenza, high-dose, trivalent, PF 7 completed Not Available [facility] 11/03/2022 07:24:31 Influenza, high-dose, trivalent, PF 6 completed Not Available [facility] 11/03/2022 07:24:31 Pneumococcal conjugate PCV 13 5 completed Not Available [facility] 11/03/2022 07:24:31 tetanus toxoid, adsorbed 4 completed Not Available [facility] 11/03/2022 07:24:31 Past Encounters Encounter ID Performer Location Encounter Start Date Encounter Closed Date Diagnosis/Indication Diagnosis SNOMED-CT Code Diagnosis ICD10 Code Diagnosis Note [id number] Sadie Wu MD [facility] Internal Med Allyson [place] [address] [place] [address] 06/01/2020 00:00:00 06/01/2020 22:49:01 [id number] [facility] [place] [address] [place] [address] 07/26/2020 00:00:00 08/05/2020 09:15:46 [id number] [facility] [place] [address] [place] [address] 09/09/2020 00:00:00 09/09/2020 13:50:50 [id number] [facility] [place] [address] [place] [address] 12/20/2020 00:00:00 12/21/2020 13:18:39 [id number] Sadie Wu MD [facility] Internal Med [facility] 15 [address] [facility] [address] [place] [address] 01/27/2021 00:00:00 01/27/2021 22:56:11 [id number] [facility] [place] [address] [place] [address] 05/19/2021 00:00:00 05/22/2021 15:08:02 [id number] Sadie Wu MD S_[facility]G Internal Med [place] [address] [facility] [place] [address] 06/30/2021 00:00:00 06/30/2021 21:37:56 [id number] [facility] [place] [address] [place] [address] 09/19/2021 00:00:00 09/19/2021 14:05:33 [id number] Sadie Wu MD [facility] Internal Med [place] [address] [facility] [place] [address] 12/29/2021 00:00:00 12/29/2021 23:03:02 [id number] Sadie Wu MD [facility] Internal [facility] [place] [address] [facility] [place] [address] 03/16/2022 00:00:00 04/02/2022 21:45:26 [id number] Sadie Wu MD [facility] Internal Med [place] [address] [facility] [place] [address] 05/18/2022 10:34:40 05/18/2022 11:47:38 Dyslipidemia 290353583 E78.5 Benign ess ential hypertension 3665776 I10 Hypothyroidism 45197180 E03.9 [id number] Sadie Wu MD [facility] Internal Med [place] [address] [place] [address] [place] [address] 10/26/2022 11:33:41 10/26/2022 12:00:11 Abdominal pain 92974100 R10.9 Benign ess ential hypertension 5824643 I10 Dyslipidemia 749287370 E 78.5 Hypothyroidism 92899174 E03.9 [id number] Sadie Wu MD [facility] Internal Med [place] [address] [place] [address] [place] [address] 11/30/2022 11:10:57 11/30/2022 12:19:04 Renewal of prescription 206896712 Z76.0 Ultrasonog zev of abdomen abnormal [id number] 8625756 R93.5 Dyslipidemia 546073911 E 78.5 Spinal [place] nosis of lumbar region 91478009 M48.062 Benign ess ential hypertension 1872359 I10 Health Concerns Section Related Observation LastModified by Organization Detai ls LastModified Time None Recorded Concern Status LastModified by Organization Details LastModified Time None Recorded Advance Directives Directive Y: Payers Insurance Date Sequence Insurance Name Policy Number Policy Chavez Covered Member ID Chavez Member ID Guarantor Name 11/27/2022 1 [facility] (MEDICARE REPLACEMENT/A DVANTAGE - PPO) [id number] Cristine Strong [id number] Cristine Strong Notes Date Note Type Note Provider Name and Address Organization Details Recorded Time 3 text/html Dyslipidemia does try to watch her dietSpinal stenosis working with the surgeon and Pain ManagementHypertension blood pressure 120/70Hypothyroid doing fine Sadie Wu MD [address] [place] [address], [place] [address], [place], [address], [facility] 05/20/2022 20:09:34 3 text/html Week or so ago she had a meal shortly thereafter right upper quadrant pain fever chills did not get jaundiced it has slowly gotten better similar episode years ago. Hyperlipidemia needs to have blood work checked back she is doing fine status post decompression Sadie Wu MD [address], [place], [address], [facility] [employer] [facility] 10/26/2022 22:47:02 3 text/html Dyslipidemia does try to watch her dietSpinal stenosis working with the surgeon and Pain ManagementHypertension blood pressure 120/70Hypothyroid doing fineNo further GI problems echogenic material seen in the gallbladder significance not commented on Sadie Wu MD [address], [place], [address], [facility] [employer] [facility] 12/01/2022 08:55:36 OBGyn Episode No OBEpisode recorded.
--- OUTSIDE RECORDS SUMMARY | 2024-09-22 12:02 | XMS_ITS | Clinical Summary ---
Author Organization [facility] Address [address] [place] [address] Care Team Providers Care Lens Dotter Name Role Phone Chun Lozano MD Primary Care Provider [phone] Allergies Active Allergy Reactions Criticality Noted Date Comments Penicillins Rash,Itching Low 02/07/2023 Sulfa Antibiotics Rash,Itching Low 02/07/2023 Medications Multiple Vitamins-Minerals (ICAPS AREDS 2 OR) Take 2 capsules by mouth daily. Active atorvastatin (LIPITOR) 20 MG tabletIndications: Mixed hyperlipidemia Take 1 tablet (20 mg total) by mouth daily. 90 tablet 1 11/05/19 24 Active meloxicam (MOBIC) 15 MG tabletIndications: Spinal stenosis of lumbar region without neurogenic claudication Take 1 tablet (15 mg total) by mouth daily. 90 tablet 1 11/05/19 24 Active Additional Information Patient taking differently:15 mg OralDAILY PRN, Reported on 08/26/2024 levothyroxine (SYNTHROID) 150 MCG tabletIndications: Acquired hypothyroidism TAKE 1 TABLET(150 MCG) BY MOUTH DAILY 90 tablet 1 04/28/19 Active lisinopril (PRINIVIL) 10 MG tabletIndications: Primary hypertension TAKE 1 TABLET(10 MG) BY MOUTH DAILY 90 tablet 1 04/28/19 25 Active Active Problems Problem Noted Date Diagnosed Date Osteopenia of multiple sites 03/02/2023 Acquired hypothyroidism 02/07/2023 Primary hypertension 02/07/2023 Mixed hyperlipidemia 02/07/2023 Spinal stenosis of lumbar re gion without neurogenic claudication 02/07/2023 History of skin cancer 02/07/2023 Overview (02/07/2023): Squamous cell carcinoma Encounters Date Type Department Care Team Description 08/26/2024 9:40 AM CDT Office Visit [facility] Family & Internal Medicine [address] [address] Chun Lozano MD Follow Up; Hypothyroidism; Hypertension; Hyperlipidemia; Osteopenia; Lumbar Pain (Chronic lumbar pain) 08/26/2024 Travel 08/13/2024 Scan [facility] Scanned, [facility] 08/06/2024 Scan [facility] Scanned, [facility] 07/03/2024 Telephone [facility] Family & Internal [address] [address] Chun Lozano MD Surgical Clearance from Last 3 Months Immunizations Immunization Administration Dates Next Due Arexvy Respiratory Syncytial Virus (RSV, adjuvanted) 0.5 mL, PF 02/07/2023 COVID-19 Vaccine (Generic) 04/30/2020,04/09/2020 Fluzone High Dose (IIV, triv alent, 0.5mL) 12/13/2023 Influenza Adult (Generic) 12/26/2022,,01/14/2021,2019,12/05/2019,12/31/2018,12/25/2017,1 ,12/14/2015,01/24/2013 PFIZER COVID-19 (ORIGINAL FORMULATION, PURPLE CAP) mRNA, LNP-S, PF, 30 MCG/0.3 ML DOSE 11/10/2020 Pneumococcal (Pneumovax 23) 03/14/2013 Pneumococcal (Prevnar 13) 12/29/2014 Pneumococcal (Prevnar 20) 01/06/2022 Tetanus Toxoid Inj 03/02/2014 Zoster (Zostavax) 16498 Unt/0.65Ml 10/17/2013 Family History Medical History Relation Comments Heart Disease Father Hypothyroidism Father [place] Father Breast Cancer Maternal Aunt Early Maternal Grandfather Killed in m inning accident Stroke Maternal Grandmother No Known Problems Mother Emphysema Paternal Grandfather black lung disease from working in mines Stroke Paternal Grandmother No Known Problems Son Relation Status Comments Father Maternal Aunt Alive Maternal Grandfather Maternal Grandmother Mother Paternal Grandfather Paternal Grandmother Son Alive Social History Tobacco Use Types Packs/Day Years Used Date Smoking Tobacco: Never Smokeless Tobacco: Never Tobacco Cessation:Counseling Given: Not Answered Alcohol Use Standard Drinks/Week Comments Not Currently 0 (1 standard drink = 0.6 oz pur e alcohol) PHQ-2 Answer Date Recorded Patient Health Questionnaire-2 Score 0 04/22/2024 Comments No Sex and Gender Information Value Date Recorded Sex Assigned at Female 04/22/2024 9:53 AM CALENDER INSPECTOR Legal Sex Female 1:57 PM CDT Gender Identity Not on file Sexual Orientation Not on file Last Filed Vital Signs Vital Sign Reading Time Taken Comments Blood Pressure 150/72 08/26/2024 10:11 AM CDT Pulse 79 08/26/2024 10:11 AM CDT Temperature 36.7 C (98.1 F) 08/26/2024 10:11 AM CDT Respiratory Rate 16 08/26/2024 10:11 AM CDT Oxygen Saturation 98% 08/26/2024 10:11 AM CDT Inhaled Oxygen Concentration - - Weight 78.5 kg (173 lb 1.6 oz) 08/26/2024 10:11 AM CDT Height 162.6 cm (5' 4) 08/26/2024 10:11 AM CDT Body Mass Index 29.71 08/26/2024 10:11 AM CDT Plan of Treatment Upcoming Encounters Date Type Department Care Team (Late st Contact Info) Description 11/27/2024 9:20 AM CDT Office Visit [facility] Family & Internal Medicine - [address] [address] Chun Lozano MD [address] [place] [address] [id number] Health Maintenance Due Date Last Done Comments Hepatitis C 1963 Annual Medicare Wellness Visit 11/02/2011 Zoster Vaccines (2 of 3) 12/12/2013 10/17/2013 DTaP, Tdap and Td Vaccines (1 - Tdap) 03/03/2014 03/02/2014 COVID-19 Vaccine ( season) 2024 01/04/2024, 12/14/2022, 11/23/2021, Additional history exists Pneumococcal Vaccine: 50+ Years Completed 01/06/2022, 12/29/2014, 03/14/2013 RSV Immunization or 60+ Years Completed 02/07/2023 Dexa Scan (General) Completed 02/21/2023 PHQ-2 (Physician [place]) Completed 04/22/2024 Meningococcal B Vaccine Aged Out No l onger eligible based on patient's age to complete this topic Meningococcal Vaccine Aged Out No geraldo jigar eligible based on patient's age to complete this topic RSV Immunizations Under 20 Months Aged Out No longer eligible based on patient's age to complete this topic Procedures Procedure Name Priority Date/Time Associated Diagnosis Comments BONE DENSITY/DEXA Routine 02/21/2023 12:00 AM CALENDER INSPECTOR Asymptomatic menopause from Last 3 Months or Most Recently Relevant to Health Maintenance Results * BONE DENSITY/DEXA (02/21/2023 12:00 AM CALENDER INSPECTOR) Anatomical Region Laterality Modality Bone Bone Density 02/21/2023 Chun Lozano MD DEXA Final Result from Last 3 Months or Most Recently Relevant to Health Maintenance Insurance Care Teams Lens Dotter Relationship Specialty Start Date End Date Chun Lozano MD [address] [place] [address] PCP - General INTERNAL MEDICINE 02/07/23
--- OUTSIDE RECORDS SUMMARY | 2024-09-22 12:02 | XMS_ITS | Encounter Summary ---
Author Organization [facility] Health Address [facility] [place] [place] [address] Care Team Providers Care Information Consultant Name Role Phone Christopher Wu MD Primary Care Provider [phone] Encounter Details Date Type Department Care Team (Late st Contact Info) Description 11/09/2017 Lab Requisition [facility] Care DermPath Lab [address] [place] [address] Aarti Huff MD [address] [facility] [address] [place] [address] Social History Tobacco Use Types Packs/Day Years Used Date Smoking Tobacco: Never Assessed Comments Unknown Sex and Gender Information Value Date Recorded Sex Assigned at Not on file Legal Sex Female 10:35 AM CDT Gender Identity Not on file Sexual Orientation Not on file documented as of this encounter Plan of Treatment Not on file documented as of this encounter Procedures Procedure Name Priority Date/Time Associated Diagnosis Comments DERMATOPATH TECHNICAL REPORT Routine 11/08/2017 12:00 AM CDT documented in this encounter Results * DERMATOPATH TECHNICAL REPORT (11/08/2017 12:00 AM CDT) Case Report Dermatopathology Report Case: [id number] Authorizing Provider: Aarti Huff MD Collected: 11/08/2017 12:00 AM Pathologist: Lucila Benitez MD Received: 11/09/2017 06:26 AM Specimens: A) - Skin, post to right ear B) - Skin, left FA 8 12:17 PM CDT DERMATOPATHOLOGY LABORATORY Clinical History A-B: AK vs SCC. Non-healing. Check margins. 12:17 PM T DERMATOPATHOLOGY LABORATORY Gross Description Specimen A: Received is one formalin filled container labeled with the patient's name and designated post to right ear. The specimen consists of a shave (2 pieces) measuring [id number], margin inked green, & [id number]. Jar 0. Specimen B: Received is one formalin filled container labeled with the patient's name and designated left FA. The specimen consists of a shave measuring [id number]. The margin is inked green. Jar 0. [facility] performed the technical component only. 12:17 PM CDT DERMATOPATHOLOGY LABORATORY Embedded Images 12:17 PM T DERMATOPATHOLOGY LABORATORY DISCLAIMER An external and internal positive and negative controls are appropriate for the histochemical, immunohistochemical and immunofluorescence stain(s) in this case (if any), except where stated explicitly. The performance characteristics of the stain(s) cited in this report were developed and its performance characteristic determined by the Dermatopathology Laboratory at [facility]. These tests need not be, and therefore are not, approved by the [place] Food and Drug Administration. The tests are used for clinical purposes. 12:17 PM [facility] DERMATOP[facility]Y [facility]ORATORY at 1217 CDT Pathology/Cytology TISSUE SPECIMEN FROM SKIN / Unknown 11/08/2017 11/09/2017 6:26 AM CDT Miscellaneous samples (specimen) TISSUE SPECIMEN FROM SKIN / Unknown 11/08/2017 11/09/2017 6:26 AM CDT us Aarti Huff MD LAB - PATHOLOGY/CYTOLOGY OR DERABLES Final Result DERMATOPATHOLOGY LABORATORY [facility] - Department of Dermatology [address] [place] [address], [facility] [phone] documented in this encounter Visit Diagnoses Not on filedocumented in this encounter Care Teams Information Consultant Relationship Specialty Start Date End Date Christopher Wu MD PCP - General 11/08/17 documented as of this encounter
--- OUTSIDE RECORDS SUMMARY | 2024-09-22 12:02 | XMS_ITS | Clinical Summary ---
Author Organization [facility] Address [address] [place] [address] Care Team Providers Care Utility Spray Operator Name Role Phone Christopher Wu MD Primary Care Provider [phone] Source Comments [facility],non-owned Affiliates and Associated Physician Practices is amultiple site organization consisting of ambulatory clinics and hospital sitesin [place], [place], [place] and [place]. This disclosure is being madepursuant to the Care Everywhere program and may not contain all information available regarding this patient. Last updated 17.[facility] [employer] Social History Tobacco Use Types Packs/Day Years Used Date Smoking Tobacco: Never Assessed Comments Unknown Sex and Gender Information Value Date Recorded Sex Assigned at Not on file Legal Sex Female 10:35 AM CDT Gender Identity Not on file Sexual Orientation Not on file Plan of Treatment Health Maintenance Due Date Last Done Comments BONE DENSITY TESTING 1945 HEPATITIS C SCREENING 10/27/1963 DTAP/TDAP/TD VACCINES (1 - Tdap) 1965 PNEUMOCOCCAL VACCINE 50+ (1 of 1 - PCV) 1996 ZOSTER VACCINE (1 of 2) 1996 Respiratory Syncytial Virus (RSV) Vaccine Pt: or over 60 yrs (1 - 1-dose 75+ series) 2021 COVID-19 VACCINE (1 - 2023-2 5 season) 2023 DEPRESSION SCREENING 03/12/2024 MEDICARE AWV CALENDAR YEAR 2024 INFLUENZA VACCINE (#1) 2024 HEPATITIS B VACCINE Aged Out No longe r eligible based on patient's age to complete this topic HIB VACCINE Aged Out No longer eligi ble based on patient's age to complete this topic HPV VACCINE Aged Out No longer eligi ble based on patient's age to complete this topic MENINGOCOCCAL (Group B) VACC INE SHARED DECISION-MAKING Aged Out No longer eligibl e based on patient's age to complete this topic MENINGOCOCCAL GROUPS A/C/Y/W VACCINE Aged Out No longer eligible b ased on patient's age to complete this topic Insurance MEDICARE [facility] MANAGED MEDICARE ADV [facility] MANAGED MEDICARE [place] [address] MEDICARE [facility] MANAGED MEDICARE ADV Member Subscriber Plan / Payer (Ef fective for All Dates) Name:Tae Cristine Josselin Relation to Subscriber:Self Name:TAECRISTINE Josselin Payer ID:[id number] (NAIC) Type:Medicare-Managed Care Address: [address] MANAGED MEDICARE ADV Member Subscriber Plan / Payer (Ef fective 2021-Present) Name:Tae Cristine Josselin Relation to Subscriber:Self Name:CRISTINE STRONG Payer ID:[id number] (NAIC) Type:Medicare-Managed Care Address: [address] MANAGED MEDICARE ADV Member Subscriber Plan / Payer (Ef fective 2021-Present) Name:Tae Cristine Josselin Relation to Subscriber:Self Name:TAECRISTINE Josselin Payer ID:[id number] (NAIC) Type:Medicare-Managed Care Address: [address] MANAGED MEDICARE ADV [place] [id number] [facility] MANAGED MEDICARE ADV [place] [id number] Care Teams Utility Spray Operator Relationship Specialty Start Date End Date Christopher Wu MD PCP - General 11/08/17
--- OUTSIDE RECORDS SUMMARY | 2024-09-22 12:02 | XMS_ITS | Encounter Summary ---
Author Organization [facility] Health Address [address] [place] [address] Care Team Providers Care Flooring Salesperson Name Role Phone Christopher Wu MD Primary Care Provider [phone] Encounter Details Date Type Department Care Team (Late st Contact Info) Description 12/14/2022 Lab Requisition [facility] - DermPath Lab [address] [place] [id number] Luis Cannon MD [address] [place] [address] Social History Tobacco Use Types Packs/Day Years [...] Procedure Name Priority Date/Time Associated Diagnosis Comments DERMATOPATHOLOGY Routine 12/12/2022 3:33 AM CDT documented in this encounter Results * DERMATOPATHOLOGY (12/12/2022 3:33 AM CDT) Case Report Dermatopathology Report Case: [id number] Authorizing Provider: Luis Cannon MD Collected: 12/12/2022 03:33 AM Ordering Location: [facility] Received: 12/14/2022 09:41 AM Pathologist: Galilea Hodges MD Specimens: A) - Skin, left upper arm B) - Skin, right sup deltoid C) - Skin, right upper back D) - Skin, right upper outer arm inf 3 1:52 PM T DERMATOPATHOLOGY LABORATORY Final Diagnosis Specimen A. SKIN, left upper arm: SQUAMOUS CELL CARCINOMA IN SITU (VORA'S DISEASE) (D04.62) NOT PRESENT AT SAMPLED MARGIN Specimen B. SKIN, right sup deltoid: SQUAMOUS CELL CARCINOMA IN SITU (VORA'S DISEASE) (D04.61) Specimen C. SKIN, right upper outer arm: ACTINIC KERATOSIS (L57.0) Specimen D. SKIN, right upper outer arm inf: SQUAMOUS CELL CARCINOMA IN SITU (VORA'S DISEASE) (D04.61) 3 1:52 PM T DERMATOPATHOLOGY LABORATORY at 1352 CDT Clinical History A-D: R/O BCC, HAK 3 1:52 PM CDT DERMATOPATHOLOGY LABORATORY Gross Description Specimen A: Received is one formalin filled container labeled with the patients name and designated left upper arm. The specimen consists of a shave removal measuring 10x9x1 mm. Jar 0. Specimen B: Received is one formalin filled container labeled with the patient's name and designated right sup deltoid. The specimen consists of a shave biopsy measuring 5x7x1 mm. Jar 0. Specimen C: Received is one formalin filled container labeled with the patient's name and designated right upper outer arm. The specimen consists of a shave biopsy measuring 10x7x1 mm. Jar 0. Specimen D: Received is one formalin filled container labeled with the patient's name and designated right upper outer arm inf. The specimen consists of a shave biopsy measuring 9x6x1 mm. Jar 0. 3 1:52 PM CDT DERMATOPATHOLOGY LABORATORY Microscopic Description Specimen A. SKIN, left upper arm: The epidermis shows parakeratosis, full thickness disorderly maturation of keratinocytes, mitoses at different levels, and dyskeratotic cells. This lesion is not present at the sampled margin of the specimen. Specimen B. SKIN, right sup deltoid: The epidermis shows parakeratosis, full thickness disorderly maturation of keratinocytes, mitoses at different levels, and dyskeratotic cells. Specimen C. SKIN, right upper outer arm: There is focal parakeratosis. The lower half of the epidermis shows disorderly maturation of keratinocytes with nuclear pleomorphism. Specimen D. SKIN, right upper outer arm inf: The epidermis shows parakeratosis, full thickness disorderly maturation of keratinocytes, mitoses at different levels, and dyskeratotic cells. 3 1:52 PM CDT DERMATOPATHOLOGY LABORATORY Disclaimer An external and internal positive and negative controls are appropriate for the histochemical, immunohistochemical and immunofluorescence stain(s) in this case (if any), except where stated explicitly. The performance characteristics of the stain(s) cited in this report were developed and its performance characteristic determined by the Dermatopathology Laboratory at [facility], directed by Dr. Brigida Vazquez. These tests need not be, and therefore are not, approved by the [place] Food and Drug Administration. The tests are used for clinical purposes. Billing Codes Specimen Charges Stain Charges 96613 [id number] [id number] 1 1 1 1 3 1:52 PM CDT DERMATOPATHOLOGY LABORATORY Embedded Images 3 1:52 PM CDT DERMATOPATHOLOGY LABORATORY Pathology/Cytology TISSUE SPECIMEN FROM SKIN / Unknown 12/12/2022 3:33 AM CDT 12/14/2022 9:41 AM CDT Miscellaneous samples (specimen) TISSUE SPECIMEN FROM SKIN / Unknown 12/12/2022 3:33 AM CDT 12/14/2022 9:41 AM CDT Miscellaneous samples (specimen) TISSUE SPECIMEN FROM SKIN / Unknown 12/12/2022 3:33 AM CDT 12/14/2022 9:41 AM CDT Miscellaneous samples (specimen) TISSUE SPECIMEN FROM SKIN / Unknown 12/12/2022 3:33 AM CDT 12/14/2022 9:41 AM CDT Luis Cannon MD LAB - PATHOLOGY/CYTOLOGY ORD ERABLES Final Result DERMATOPATHOLOGY LABORATORY [facility] - Department of Dermatology [address], [address] [phone] documented in this encounter Visit Diagnoses Not on filedocumented in this encounter Care Teams Flooring Salesperson Relationship Specialty Start Date End Date Christopher Wu MD PCP - General 11/08/17 documented as of this encounter
--- OUTSIDE RECORDS SUMMARY | 2024-09-22 12:02 | XMS_ITS | Clinical Summary ---
Author Organization [facility] Care Team Providers Care Program Therapist Name Role Phone Unavailable Primary Care Provider Unavailabl e Social History Tobacco Use Types Packs/Day Years Used Date Smoking Tobacco: Never Assessed Comments Unknown Sex and Gender Information Value Date Recorded Sex Assigned at Not on file Legal Sex Female 11:49 AM CDT Gender Identity Not on file Sexual Orientation Not on file Plan of Treatment Health Maintenance Due Date Last Done Comments Hepatitis C Virus (HCV) Screening 1945 TdaP Immunization 1945 Zoster Immunization (2 of 3) 12/12/2013 10/17/2013 Respiratory Syncytial Virus (RSV) Immunization (Adult) (1 - 1-dose 75+ series) 2021 SARS-COV-2 Immunization (2023- season) 2023 12/06/2020, 04/29/2020, 04/07/2020 Influenza Immunization (#1) 2024 0907/2019, 12/31/2018, 12/25/2017, Additional history exists Pneumococcal Immunization (50+ years) Completed 12/29/2014, 03/14/2013 Hepatitis B Immunization Aged Out No longer eligible based on patient's age to complete this topic Human Papillomavirus (HPV) Immunization Aged Out No longer eligible based on patient's age to complete this topic Meningococcal Immunization (ACWY) Aged Out No longer eligible based on patient's age to complete this topic Rotavirus Immunization Aged Out No lo nger eligible based on patient's age to complete this topic
== END 2024-09-22 11:57 | disposition home or self-care (01) ==
PROVIDERS: PCP Internal Medicine; Visit Provider Internal Medicine
DX: Z12.31 Encounter for screening mammogram for malignant neoplasm of breast (principal)
CPT/HCPCS: 77063; 77067